=== PATIENT | male | born 1950 | race Caucasian/White ===

== ENCOUNTER 2017-12-10 08:39 | Day surgery (SDC) | payer MEDICARE ==
[~2017-12-10] VITALS: Ht 175.3 cm; Wt 80.0 kg
--- NOTE | ~2017-12-10 | OP ---
PATIENT NAME: SHANNON BLANKENSHIP MEDICAL RECORD: [id number] :46 LOCATION:D.OPS ADMISSION DATE: SURGEON: AASHISH GALICIA MD DATE OF OPERATION: 12/10/2017 PREOPERATIVE DIAGNOSES: 1. Ventral incisional hernia. 2. Left inguinal hernia. 3. Hypertension. 4. Hyperlipidemia. 5. Osteoarthritis. POSTOPERATIVE DIAGNOSES: 1. Ventral incisional hernia. 2. Left inguinal hernia. 3. Hypertension. 4. Hyperlipidemia. 5. Osteoarthritis. PROCEDURES: 1. Left inguinal hernia repair with medium PHS mesh. 2. Ventral incisional hernia repair with 8 cm Ventrio mesh. SURGEON: Aashish Galicia MD BUSINESS AFFAIRS MANAGER: Kindra Arora APRN REPORT OF PROCEDURE: The patient's abdomen was prepped and draped in sterile fashion. A longitudinal incision was made around the patient's umbilicus overlying the indwelling hernia. Electrocautery was used to dissect through the subcutaneous tissues down to the fascia. As we encountered the fascia, there was noted to be immediate hernia defect right underneath the umbilicus. This was dissected free and we were able to penetrate into the abdominal cavity. Once in the abdominal cavity, I took down some adhesions of the omentum to the anterior abdominal wall. Upon doing this, I could see that there were two more hernia defects superiorly and one in the midline. There was about a centimeter in size and another approximately 2 to 2.5 cm defect just above and to the left of the umbilicus. We extended our incision superiorly and opened up the fascia to include the superior midline defect. The tissue overlying the fascia was cleared out in all directions. We then inserted an 8 cm Ventrio mesh in an underlay fashion and sutured it down on all sides using multiple interrupted 0 Nurolon. The wound was then irrigated out with normal saline and care was taken to assure there was no bleeding. The fascia was then closed in the midline using a 0 Vicryl. The hernia defect in the left upper quadrant was closed over the mesh using an interrupted 0 Vicryl. We then reapproximated the subcutaneous tissues using interrupted 3-0 Vicryls and the skin was closed with running subcutaneous 5-0 Monocryl. A 10 mL of 0.25% Marcaine with epinephrine was infused into the surrounding tissues. We then approached the left lower quadrant and an oblique incision was made just above the inguinal ligament. Electrocautery was used to dissect through subcutaneous tissues to the external oblique fascia. This fascia was opened up to the external ring using electrocautery. We elevated the patient's spermatic cord and saw there was a moderate-sized cord lipoma. This was high ligated using a 3-0 silk. There was no sign of an indirect hernia defect. There was some laxity to the inguinal floor. I opened up the inguinal floor and cleared out the preperitoneal space OPERATIVE REPORT [id number] SHANNON BLANKENSHIP of [employer]. A medium PHS mesh was inserted into this space and fanned out over the fascia. This was sutured down into place using multiple interrupted 0 Vicryls. The ilioinguinal nerve was found and high ligated. We then reapproximated the external oblique fascia using running 2-0 Vicryl. Delmar's was closed with interrupted 3-0 Vicryl and the skin was closed with running subcutaneous 5-0 Monocryl. Total of 10 more mL of 0.25% Marcaine with epinephrine were infused in the left lower quadrant and the wounds were dressed appropriately. COMPLICATIONS: None. CONDITION: Stable. ANESTHESIA: General endotracheal and local. BLOOD LOSS: Minimal. TRANSINT:[id number] Voice Confirmation ID: [id number] DOCUMENT ID: [id number] AASHISH GALICIA MD at 1418 CC: JASEN ANDERSON [id number] DICTATION DATE: 12/10/17 1303 WATER MECHANIC: 12/10/17 1439 [facility] 12/10/[address] [address]
[~2017-12-10 08:39] MED LIST: AMLODIPINE-BENAZEPRI; COREG25 MG PO; FELDENE20 MG PO; LOTREL 5/20 MG1 CAP; REQUIP1 MG PO; ZOCOR20 MG PO
[2017-12-10 09:22] LABS: BASOPHILS 0.9 % (0-2); EOSINOPHILS 12.1 % (0-7); HEMATOCRIT 41.4 % (42.0-54.0); HEMOGLOBIN 14.1 g/dL (13.5-17.5); IMMATURE GRANULOCYTES 0.3 % (0-5); LYMPHOCYTES 21.8 % (15-50); MCH 32.3 pg (26.0-34.0); MCHC 34.1 g/dL (31.0-37.0); MCV 94.7 fL (80.0-100.0); MEAN PLATELET VOLUME 8.7 fL (7.4-10.4); MONOCYTES 12.9 % (2-11); PLATELET COUNT 154 10x3/uL (130-400); RBC 4.37 10x6/uL (4.20-6.10); RDW 13.6 % (11.5-14.5); WBC 6.4 10x3/uL (4.8-10.8)
[2017-12-10 09:34] LABS: ANION GAP 9.2 mmol/L (8-16); CALCIUM 8.6 mg/dL (8.5-10.1); CARBON DIOXIDE 25.9 mmol/L (21.0-32.0); CREATININE - SERUM 1.1 mg/dL (0.6-1.3); POTASSIUM - SERUM 4.1 mmol/L (3.5-5.1)
[2017-12-10 10:03] VITALS: BP 117/70; BMI 26.8
[2017-12-10 10:06] VITALS: BP 117/70; Ht 175.3 cm; Wt 80.0 kg
[2017-12-10] MEDS ORDERED: CYCLOBENZAPRINE10 MG PO (12:58)
[2017-12-10] MEDS ORDERED: HYDROCODONE-APA1 TAB PO (12:58)
== END 2017-12-10 18:00 | disposition home or self-care (01) ==
LOC: D.OPS 08:39
PROVIDERS: Surgery
DX: K43.2 Incisional hernia without obstruction or gangrene (principal); K40.90 Unilateral inguinal hernia, without obstruction or gangrene, not specified as recurrent; I10 Essential (primary) hypertension; E78.5 Hyperlipidemia, unspecified; M19.90 Unspecified osteoarthritis, unspecified site; Z01.812 Encounter for preprocedural laboratory examination